=== PATIENT | female | born 2000 | race Caucasian/White ===

== ENCOUNTER → 2021-02-08 | Outpatient (CLI) | payer OTHER ==
[2021-02-14 03:10] LABS: CHLAMYDIA TRACHOMATIS, NAA Negative (Negative)
== END | disposition home or self-care (01) ==
LOC: LAB SHORT 15:54
PROVIDERS: Obstetrics & Gynecology
DX: Z01.419 Encounter for gynecological examination (general) (routine) without abnormal findings (principal); Z11.3 Encounter for screening for infections with a predominantly sexual mode of transmission
CPT/HCPCS: 87491; 87591; G0123

== ENCOUNTER 2024-04-27 08:17 | Emergency (ER) | payer MEDICAID ==
[~2024-04-27] VITALS: Ht 162.6 cm; Wt 104.3 kg
[2024-04-27 09:16] VITALS: BP 140/94
[2024-04-27 10:26] LABS: Hematocrit 32.1 % (33.0-51.0); Hemoglobin 10.4 g/dL (11.5-16.0); Mean Corpuscular HGB 25.4 pg (26.0-34.0); Mean Corpuscular HGB Conc 32.4 g/dL (31.5-36.5); Mean Corpuscular Volume 78 fL (80-100); Mean Platelet Volume 9.4 fL (9.1-12.4); Platelet Count 214 K/mm3 (150-400); RDW Coefficient Variation 14.2 % (11.7-14.2); RDW Standard Deviation 39.9 fL (35.1-46.3); White Blood Cell Count 3.46 K/mm3 (4.00-11.30)
[2024-04-27 10:50] LABS: Albumin, Blood 3.3 g/dL (3.4-5.0); Albumin/Globulin Ratio 0.9 (0.8-1.8); BAND PERCENT MAN 1 % (0-8); BASOPHILS ABSOLUTE MAN 0.03 K/mm3 (0.00-0.23); BASOPHILS PERCENT MAN 1 % (0-2); Bilirubin, Total 0.5 mg/dL (0.1-1.0); Bun/Creatinine Ratio 34.6 (12.0-20.0); Calcium, Blood 8.4 mg/dL (8.5-10.1); Creatinine, Blood 0.43 mg/dL (0.40-1.00); EOSINOPHILS PERCENT MAN 3 % (0-6); Globulin, Blood 3.5 g/dL (2.2-4.0); LYMPHOCYTES % ATYPICAL MANUAL 1 % (0-0); LYMPHOCYTES ABSOLUTE MAN 1.03 K/mm3 (0.84-5.20); LYMPHOCYTES PERCENT MAN 29 % (21-46); MONOCYTES ABSOLUTE MAN 0.27 K/mm3 (0.16-1.47); MONOCYTES PERCENT MAN 8 % (4-13); Potassium, Blood 4.2 mmol/L (3.5-5.5); SEG NEUTROPHILS PERCENT MAN 57 % (41-73); TOTAL CELLS COUNTED 100; Total Protein, Blood 6.8 g/dL (6.4-8.2)
[2024-04-27] MEDS ORDERED: Neurontin 100100 MG PO ×2 (11:34→11:35)
== END 2024-04-27 11:40 | disposition home or self-care (01) ==
LOC: ER 08:17
PROVIDERS: Physician Assistant
DX: R22.33 Localized swelling, mass and lump, upper limb, bilateral (principal); R20.2 Paresthesia of skin; M79.642 Pain in left hand; M79.641 Pain in right hand
CPT/HCPCS: 36415; 80053; 85025; 99283

== ENCOUNTER → 2025-07-14 | Outpatient (CLI) | payer OTHER ==
[~2025-07-14] MED LIST: Neurontin 100100 MG PO
[2025-07-15 23:31] LABS: Campylobacter Sp Not Detected (NOT DETECT); E. Coli O157 Not Detected (NOT DETECT); Enteroaggregative E. coli-EAEC Not Detected (NOT DETECT); Enteropathogenic E. coli-EPEC Not Detected (NOT DETECT); Enterotoxigenic E. coli-ETEC Not Detected (NOT DETECT); Salmonella Sp Not Detected (NOT DETECT); Shiga Toxin-prod E. coli-STEC Not Detected (NOT DETECT); Shigella/Enteroin E. coli-EIEC Not Detected (NOT DETECT); Vibrio Sp Not Detected (NOT DETECT)
[2025-07-22 12:56] LABS: OVA AND PARASITE,FECAL INTERP Negative (Negative)
== END ==
LOC: LAB 18:05 → LAB SHORT 18:05
DX: R19.7 Diarrhea, unspecified (principal)
CPT/HCPCS: 87177; 87209; 87507